=== PATIENT | female | born 1990 ===

== ENCOUNTER 2016-08-17 10:37 | Emergency (ER) | payer OTHER ==
[2016-08-17 10:45] VITALS: O2SAT 100
[2016-08-17 10:46] VITALS: BMI 26.7
[2016-08-17 11:18] LABS: URINE BACTERIA RARE (<OCC); URINE BILIRUBIN NEGATIVE (NEGATIVE); URINE BLOOD NEGATIVE (NEGATIVE); URINE COLOR Colorless (YELLOW); URINE GLUCOSE (UA) NORMAL (Normal); URINE KETONE NEGATIVE (NEGATIVE); URINE LEUKOCYTE ESTERASE NEG Leu/uL (Negative); URINE PROTEIN NEGATIVE (NEGATIVE); URINE UROBILINOGEN NORMAL mg/dL (0.2-1.0)
[2016-08-17] MEDS ORDERED: Iohexol 240 (50 ml) PO STA (11:39)
[2016-08-17] MEDS ORDERED: Sodium Chloride 0.9% 1,000 ML IV STA (11:40)
[2016-08-17] MEDS ORDERED: Iohexol 240 (50 ml) ONE (11:53)
[2016-08-17] MEDS ORDERED: Sodium Chloride 0.9% 1,000 ML ONE (11:53)
[2016-08-17 12:11] LABS: CHLORIDE 103 mmol/L (98-107)
[2016-08-17 12:12] LABS: POTASSIUM 3.4 mmol/L (3.6-5.2); SODIUM 140 mmol/L (132-148)
[2016-08-17 12:14] LABS: ALB/GLOB RATIO 1.3 (1.0-2.1); ALKALINE PHOSPHATASE 52 U/L (38-126); AST/SGOT 21 U/L (14-36); BASO # 0.1 K/uL (0.0-0.2); BASO % 1.2 % (0.0-2.0); BILIRUBIN,TOTAL 0.7 mg/dL (0.2-1.3); CARBON DIOXIDE 27 mmol/L (22-30); EOS # 0.1 K/uL (0.0-0.7); EOS % 1.8 % (0.0-4.0); GFR AFRICAN-AMERICAN > 60; HEMATOCRIT 37.9 % (34.0-47.0); LYMPH # 2.4 K/uL (1.0-4.3); LYMPH % 40.6 % (20.0-40.0); MEAN CORPUSCULAR HEMOGLOBIN 29.3 pg (27.0-31.0); MEAN CORPUSCULAR HGB CONC 33.2 g/dL (33.0-37.0); MEAN PLATELET VOLUME 9.2 fL (7.2-11.7); MONO # 0.3 K/uL (0.0-0.8); MONO % 4.5 % (0.0-10.0); NRBC % 0.1 % (0.0-2.0); TOTAL PROTEIN 7.5 g/dL (6.3-8.3); WHITE BLOOD COUNT 5.9 K/uL (4.8-10.8)
[2016-08-17 12:15] LABS: ALT/SGPT 18 U/L (9-52); BLOOD UREA NITROGEN 13 mg/dL (7-17); CALCIUM 8.8 mg/dl (8.6-10.4); GLUCOSE,RANDOM 71 mg/dL (65-105)
[2016-08-17 12:16] LABS: MEAN CELL VOLUME 88.3 fL (81.0-99.0)
--- NOTE | 2016-08-17 13:39 | C.PDOC ---
History Of Present Illness 26-year-old female, presents to the emergency department with complaints of two- day duration of left-sided abdominal pain that is associated with nausea. Patient denies vomiting, headaches, diarrhea, symptoms, back pain or any other associated symptoms. No other complaints at this time. Time Seen by Provider: 08/17/16 11:20 Chief Complaint (Nursing): Dizziness/Lightheaded History Per: Patient History/Exam Limitations: no limitations Past Medical History Reviewed: Historical Data, Nursing Documentation, Vital Signs Vital Signs: Last Vital Signs Temp 98.0 F 08/17/16 10:44 Pulse 76 08/17/16 10:44 Resp 16 08/17/16 10:44 BP 117/81 08/17/16 10:44 Pulse Ox 100 08/17/16 14:55 Family History: States: Unknown Family Hx - Social History Hx Tobacco Use: No Hx Alcohol Use: No Hx Substance Use: No - Immunization History Hx Tetanus Toxoid Vaccination: Yes Hx Influenza Vaccination: No Hx Pneumococcal Vaccination: No Review Of Systems Except As Marked, All Systems Reviewed And Found Negative. Constitutional: Negative for: Fever, Chills Cardiovascular: Negative for: Chest Pain Respiratory: Negative for: Shortness of Breath Gastrointestinal: Positive for: Abdominal Pain. Negative for: Nausea, Vomiting , Diarrhea Musculoskeletal: Negative for: Back Pain Physical Exam - Physical Exam Appears: Non-toxic, No Acute Distress Skin: Warm, Dry, No Rash Head: Atraumatic Eye(s): bilateral: Normal Inspection Nose: Normal Oral Mucosa: Moist Lips: Normal Appearing Neck: Normal ROM Cardiovascular: Rhythm Regular Respiratory: Normal Breath Sounds, No Accessory Muscle Use Gastrointestinal/Abdominal: Soft, Tenderness (LEFT-SIDED), No Guarding, No Rebound Extremity: Normal ROM ED Course And Treatment - Laboratory Results Result Diagrams: 08/17/16 11:50 08/17/16 11:50 O2 Sat by Pulse Oximetry: 100 - CT Scan/US CT of abdomen/pelvis Other Rad Studies (CT/US): Read By Radiologist, Radiology Report Reviewed CT/US Interpretation: Accession No. : [id number]. Patient Name / ID : KAMLESH STARK / [id number]. Exam Date : 08/17/2016 14:23:43 ( Approved ). Study Comment : Sex / Age : F / 26Y. Creator : Robson Lane MD. Dictator : Robson Lane MD. Data Entry Technician : Grey Goods Tester : Robson Lane MD. Approver2 : Report Date : 08/17/2016 14:56:21. My Comment : . PROCEDURE: CT Abdomen and Pelvis with contrast. HISTORY: LLQ abd pain. COMPARISON: 12/12/2015. TECHNIQUE: Contrast dose: 100 mL Visipaque 320. Radiation dose: Total exam DLP = 659.93 mGy-cm. This CT exam was performed using one or more of the following dose reduction techniques: Automated exposure control, adjustment of the mA and/or kV according to patient size, and/ or use of iterative reconstruction technique. FINDINGS: LOWER THORAX: Probable minimal dependent atelectasis left lower lobe. LIVER: Unremarkable. No gross lesion or ductal dilatation. GALLBLADDER AND BILE DUCTS: Contracted. No calcified gallstones. PANCREAS: Unremarkable. No gross lesion or ductal dilatation. SPLEEN: Unremarkable. ADRENALS: Unremarkable. No mass. KIDNEYS AND URETERS: Unremarkable. No hydronephrosis. No solid mass. VASCULATURE: No aortic aneurysm. Pelvic varices bilaterally, left greater than right. Please correlate with any concern for pelvic congestion syndrome. BOWEL: Unremarkable. No obstruction. No gross mural thickening. APPENDIX: Normal appendix. PERITONEUM: Unremarkable. No free fluid. No free air. LYMPH NODES: Unremarkable. No enlarged lymph nodes. BLADDER: Unremarkable. REPRODUCTIVE : Normal uterus. BONES: No acute fracture. OTHER FINDINGS: None. IMPRESSION: Findings consistent with pelvic congestion syndrome. Please correlate clinically. No evidence of diverticulitis. Otherwise unremarkable examination. Progress Note: Patient feels better. She is stable to be d/c home with OBGYN follow up. Disposition - Disposition Disposition: HOME/ ROUTINE Disposition Time: 16:02 Condition: STABLE Additional Instructions: Follow up with OBGYN within 1-2 days. Return to Ed if feel worse. Prescriptions: Ibuprofen [Motrin Tab] 600 mg PO Q8 #30 tab Instructions: Abdominal Pain (ED) - Clinical Impression Clinical Impression: Abdominal pain - Scribe Statement The provider has reviewed the documentation as recorded by the Scribe Iam Perez All medical record entries made by the Joanneibcindy were at my direction and personally dictated by me. I have reviewed the chart and agree that the record accurately reflects my personal performance of the history, physical exam, medical decision making, and the department course for this patient. I have also personally directed, reviewed, and agree with the discharge instructions and disposition.
[2016-08-17] MEDS ORDERED: Iodixanol 320 MG/ML 100 ML BOTTLE IV ONE (14:11)
--- NOTE | 2016-08-17 14:58 | CT ---
PROCEDURE: CT Abdomen and Pelvis with contrast HISTORY: LLQ abd pain COMPARISON: 12/12/2015 TECHNIQUE: Contrast dose: 100 mL Visipaque 320 Radiation dose: Total exam DLP = 659.93 mGy-cm. This CT exam was performed using one or more of the following dose reduction techniques: Automated exposure control, adjustment of the mA and/or kV according to patient size, and/or use of iterative reconstruction technique. FINDINGS: LOWER THORAX: Probable minimal dependent atelectasis left lower lobe. LIVER: Unremarkable. No gross lesion or ductal dilatation. GALLBLADDER AND BILE DUCTS: Contracted. No calcified gallstones. PANCREAS: Unremarkable. No gross lesion or ductal dilatation. SPLEEN: Unremarkable. ADRENALS: Unremarkable. No mass. KIDNEYS AND URETERS: Unremarkable. No hydronephrosis. No solid mass. VASCULATURE: No aortic aneurysm. Pelvic varices bilaterally, left greater than right. Please correlate with any concern for pelvic congestion syndrome. BOWEL: Unremarkable. No obstruction. No gross mural thickening. APPENDIX: Normal appendix. PERITONEUM: Unremarkable. No free fluid. No free air. LYMPH NODES: Unremarkable. No enlarged lymph nodes. BLADDER: Unremarkable. REPRODUCTIVE: Normal uterus BONES: No acute fracture. OTHER FINDINGS: None. IMPRESSION: Findings consistent with pelvic congestion syndrome. Please correlate clinically. No evidence of diverticulitis. Otherwise unremarkable examination.
[2016-08-17 15:51] VITALS: BP 105/78; PULSE 72; RESP 18; TEMP 98.7
== END 2016-08-17 16:27 | disposition home or self-care (01) ==
LOC: C.ER 10:37
DX: R10.9 Unspecified abdominal pain (principal)
CPT/HCPCS: 74177; 80053; 81001; 83690; 84703; 85025; 96374; 99285; J2405; J7040; Q9966; Q9967

== ENCOUNTER 2016-11-01 04:28 | Emergency (ER) | payer OTHER ==
[2016-11-01 04:28] VITALS: BMI 26.7
[2016-11-01 04:41] VITALS: BP 109/83; RESP 18
--- NOTE | 2016-11-01 05:12 | C.PDOC ---
History Of Present Illness 26 year old female presents to the ED with complaints of fever, cough, earache, sore throat, and blood in sputum for five days. Patient denies nausea, vomiting , diarrhea, or other complaints at this time. Chief Complaint (Nursing): Flu-like Symptoms History Per: Patient History/Exam Limitations: no limitations Onset/Duration Of Symptoms: Days (5) Current Symptoms Are (Timing): Still Present Location Of Pain: Ear(s), Throat Sick Contacts (Context): None Associated Symptoms: Fever, Sore Throat, Cough, Sputum. denies: Chills, Nausea , Vomiting, Diarrhea Recent travel outside of the [place]: No Past Medical History Reviewed: Historical Data, Nursing Documentation, Vital Signs Vital Signs: Last Vital Signs Temp 99.5 F 11/01/16 04:32 Pulse 81 11/01/16 04:32 Resp 18 11/01/16 04:32 BP 109/83 11/01/16 04:32 Pulse Ox 100 11/01/16 05:33 Family History: States: Unknown Family Hx - Social History Hx Tobacco Use: No Hx Alcohol Use: No Hx Substance Use: No - Immunization History Hx Tetanus Toxoid Vaccination: Yes Hx Influenza Vaccination: No Hx Pneumococcal Vaccination: No Review Of Systems Constitutional: Positive for: Fever. Negative for: Chills ENT: Positive for: Ear Pain (earache ), Other (sore throat ) Cardiovascular: Negative for: Chest Pain Respiratory: Positive for: Cough. Negative for: Shortness of Breath Gastrointestinal: Negative for: Nausea, Vomiting, Abdominal Pain, Diarrhea Physical Exam - Physical Exam Appears: Non-toxic, No Acute Distress Skin: Warm, Dry Head: Atraumatic Eye(s): bilateral: Normal Inspection, PERRL, EOMI Ear(s): Left: Other (congested left TM ) Oral Mucosa: Moist Throat: Normal, No Erythema, No Exudate Neck: Supple, Other (no cerival nodes ) Chest: Symmetrical, No Deformity Cardiovascular: Rhythm Regular Respiratory: Rhonchi (occassional rhonci bilateral ) Gastrointestinal/Abdominal: Soft, No Tenderness, No Distention, No Guarding, No Rebound Neurological/Psych: Oriented x3, Normal Speech, Normal Cognition, Normal Cranial Nerves, Normal Motor, Normal Sensation ED Course And Treatment - Laboratory Results Result Diagrams: 11/01/16 05:11 11/01/16 05:11 O2 Sat by Pulse Oximetry: 100 (room air ) - Radiology CXR: Interpreted by Me, Viewed By Me CXR Interpretation: Yes: No Acute Disease. No: Infiltrates Disposition Counseled Patient/Family Regarding: Diagnosis - Disposition Referrals: [facility] at [facility] [Outside] Disposition: HOME/ ROUTINE Disposition Time: 05:34 Condition: STABLE Prescriptions: Acetaminophen [Tylenol 325mg tab] 650 mg PO Q4 #20 tab Amoxicillin [Amoxil 500 mg Cap] 500 mg PO Q8 #20 cap Instructions: Otitis Media (ED), Fever in Adults (GEN) Forms: [employer] (Romansh), Gen Discharge Inst [place] Islander Print Language: LITHUANIAN - POA Present On Arrival: None - Clinical Impression Clinical Impression: Otitis media - Scribe Statement The provider has reviewed the documentation as recorded by the Scribe Sowmya Hanson All medical record entries made by the Scribe were at my direction and personally dictated by me. I have reviewed the chart and agree that the record accurately reflects my personal performance of the history, physical exam, medical decision making, and the department course for this patient. I have also personally directed, reviewed, and agree with the discharge instructions and disposition.
[2016-11-01 05:14] LABS: BASO % 0.8 % (0.0-2.0); EOS # 0.1 K/uL (0.0-0.7); EOS % 1.1 % (0.0-4.0); HEMOGLOBIN 12.9 g/dL (11.0-16.0); LYMPH % 15.8 % (20.0-40.0); MEAN CELL VOLUME 88.7 fL (81.0-99.0); MEAN CORPUSCULAR HEMOGLOBIN 29.6 pg (27.0-31.0); MEAN CORPUSCULAR HGB CONC 33.3 g/dL (33.0-37.0); MONO # 0.4 K/uL (0.0-0.8); MONO % 6.6 % (0.0-10.0); NEUT % 75.7 % (50.0-75.0); RBC 4.35 Mil/uL (3.80-5.20); RED CELL DISTRIBUTION WIDTH 13.9 % (11.5-14.5); WHITE BLOOD COUNT 6.5 K/uL (4.8-10.8)
[2016-11-01 05:22] LABS: ALBUMIN 3.8 g/dL (3.5-5.0)
[2016-11-01 05:25] LABS: GFR AFRICAN-AMERICAN > 60; GFR NON-AFRICAN AMERICAN > 60
[2016-11-01 05:26] LABS: ALB/GLOB RATIO 1.1 (1.0-2.1); ALT/SGPT 36 U/L (9-52); AST/SGOT 34 U/L (14-36); BLOOD UREA NITROGEN 18 mg/dL (7-17); CALCIUM 8.7 mg/dl (8.6-10.4)
[2016-11-01 05:43] VITALS: PULSE 79; TEMP 99.2; O2SAT 99
--- NOTE | 2016-11-01 10:57 | RAD ---
HISTORY: Shortness of breath COMPARISON: No prior. TECHNIQUE: Chest PA and lateral FINDINGS: LUNGS: Mild venous congestion with minimal patchy increased markings at the bases. Mild right hilar prominence. PLEURA: No significant pleural effusion identified. No pneumothorax apparent. CARDIOVASCULAR: Normal. OSSEOUS STRUCTURES: No significant abnormalities. VISUALIZED UPPER ABDOMEN: Normal. OTHER FINDINGS: None. IMPRESSION: Mild venous congestion with minimal patchy increased markings at the bases. Mild right hilar prominence.
== END 2016-11-01 05:42 | disposition home or self-care (01) ==
LOC: C.ER 04:28
DX: H66.92 Otitis media, unspecified, left ear (principal)

== ENCOUNTER 2016-11-20 09:11 | Emergency (ER) | payer OTHER ==
[2016-11-20 09:11] VITALS: BMI 26.7
[2016-11-20 09:26] VITALS: RESP 18; TEMP 98.3
[2016-11-20] MEDS ORDERED: Sodium Chloride 0.9% 1,000 ML IV ONE (09:55)
[2016-11-20] MEDS ORDERED: Sodium Chloride 0.9% 1,000 ML ONE (09:59)
[2016-11-20 10:09] LABS: BASO # 0.1 K/uL (0.0-0.2); EOS # 0.1 K/uL (0.0-0.7); MONO # 0.4 K/uL (0.0-0.8)
[2016-11-20 10:17] LABS: BASO % 1.2 % (0.0-2.0); EOS % 0.8 % (0.0-4.0); HEMATOCRIT 35.7 % (34.0-47.0); LYMPH # 2.3 K/uL (1.0-4.3); LYMPH % 34.8 % (20.0-40.0); MEAN CELL VOLUME 86.9 fL (81.0-99.0); MEAN CORPUSCULAR HEMOGLOBIN 28.7 pg (27.0-31.0); MEAN PLATELET VOLUME 8.4 fL (7.2-11.7); MONO % 6.7 % (0.0-10.0); RED CELL DISTRIBUTION WIDTH 13.5 % (11.5-14.5); WHITE BLOOD COUNT 6.6 K/uL (4.8-10.8)
[2016-11-20 10:24] LABS: RBC URINE < 1 /hpf (0-3); URINE BACTERIA RARE (<OCC); URINE BILIRUBIN NEGATIVE (NEGATIVE); URINE BLOOD NEGATIVE (NEGATIVE); URINE COLOR Yellow (YELLOW); URINE GLUCOSE (UA) NORMAL (Normal); URINE KETONE NEGATIVE (NEGATIVE); URINE LEUKOCYTE ESTERASE NEG Leu/uL (Negative); URINE PROTEIN NEGATIVE (NEGATIVE); URINE UROBILINOGEN NORMAL mg/dL (0.2-1.0); WBC URINE 2 /hpf (0-5)
[2016-11-20 10:41] LABS: CHLORIDE 101 mmol/L (98-107); SODIUM 140 mmol/L (132-148)
[2016-11-20 10:42] LABS: POTASSIUM 3.9 mmol/L (3.6-5.2)
[2016-11-20 10:44] LABS: ALB/GLOB RATIO 1.1 (1.0-2.1); ALKALINE PHOSPHATASE 43 U/L (38-126); AST/SGOT 18 U/L (14-36); BILIRUBIN,TOTAL 0.7 mg/dL (0.2-1.3); CARBON DIOXIDE 26 mmol/L (22-30); GFR AFRICAN-AMERICAN > 60
[2016-11-20 10:45] LABS: ALT/SGPT 28 U/L (9-52); BLOOD UREA NITROGEN 17 mg/dL (7-17); CALCIUM 9.2 mg/dl (8.6-10.4); GLUCOSE,RANDOM 86 mg/dL (65-105)
--- NOTE | 2016-11-20 10:58 | C.PDOC ---
History Of Present Illness 26 y/o female presents to ED for evaluation of intermittent headache for the last month. She states her headache is mostly in the occipital region, and states it occasionally radiates down to her neck. Pt reports taking Motrin with relief of symptoms. Patient also complaints of bright red blood per rectum with bowel movement for the last 6 days. Pt admits to having Hx of hemorrhoids, and c /o current generalized weakness. Patient denies chest pain, shortness of breath , abdominal pain, nausea, vomiting, back pain, dizziness, visual changes, slurred speech, facial droop, sensory changes in extremities, extremity weakness , fever. Time Seen by Provider: 11/20/16 09:42 Chief Complaint (Nursing): GI Problem History Per: Patient History/Exam Limitations: no limitations Onset/Duration Of Symptoms: Days (6) Current Symptoms Are (Timing): Still Present Number Of Bleeding Episodes: Multiple: Amount of Blood Loss: Small Severity: Mild Associated Symptoms: denies: Nausea, Vomiting, Hematemesis, Coffee Ground material, Lightheadedness Additional History Per: Patient Past Medical History Reviewed: Historical Data, Nursing Documentation, Vital Signs Vital Signs: Last Vital Signs Temp 98.3 F 11/20/16 09:24 Pulse 82 11/20/16 11:44 Resp 18 11/20/16 11:44 BP 113/81 11/20/16 11:44 Pulse Ox 96 11/20/16 11:44 Family History: States: No Known Family Hx - Social History Hx Tobacco Use: No Hx Alcohol Use: No Hx Substance Use: No - Immunization History Hx Tetanus Toxoid Vaccination: Yes Hx Influenza Vaccination: No Hx Pneumococcal Vaccination: No Review Of Systems Except As Marked, All Systems Reviewed And Found Negative. Constitutional: Positive for: Weakness. Negative for: Fever, Chills Eyes: Negative for: Vision Change Cardiovascular: Negative for: Chest Pain, Light Headedness Respiratory: Negative for: Shortness of Breath Gastrointestinal: Positive for: Hematochezia (bright red blood per rectum). Negative for: Nausea, Vomiting, Abdominal Pain, Diarrhea, Hematemesis, Rectal Pain Genitourinary: Negative for: Dysuria, Frequency, Hematuria Musculoskeletal: Positive for: Neck Pain. Negative for: Back Pain Neurological: Positive for: Confusion, Headache. Negative for: Weakness, Numbness, Dizziness Physical Exam - Physical Exam Appears: Well, Non-toxic, No Acute Distress Skin: Normal Color, Warm, Dry Head: Atraumatic, Normacephalic Eye(s): bilateral: Normal Inspection (no nystagmus), PERRL, EOMI Oral Mucosa: Moist Neck: Normal, Normal ROM, Supple, Other (no meningismus ) Chest: Symmetrical Cardiovascular: Rhythm Regular, No Murmur Respiratory: Normal Breath Sounds, No Accessory Muscle Use, No Rales, No Rhonchi , No Wheezing Gastrointestinal/Abdominal: Normal Exam, Bowel Sounds, Soft, No Tenderness Rectal: Rectal Tone (normal), Heme Positive (blood tinged stool), Hemorrhoids ( large hemorrhoid at 12'o clock position), No Mass, No Tenderness, No Other (no fissure) Back: Normal Inspection, No CVA Tenderness Extremity: Normal ROM Neurological/Psych: Oriented x3, Normal Speech, Normal Cognition, Normal Cranial Nerves, No Cerebellar Signs, Normal Motor, Normal Sensation Gait: Steady ED Course And Treatment - Laboratory Results Result Diagrams: 11/20/16 10:05 11/20/16 10:05 O2 Sat by Pulse Oximetry: 95 (RA) Pulse Ox Interpretation: Normal Progress Note: Plan: Blood work, UA, Upreg ordered and reviewed. Patient given IV NS bolus, PO tylenol and PO colace. Reevaluation Time: 11:25 Reassessment Condition: Improved (Patient reassessed, is resting comfortably and states she feels better, headache has resolved. Blood work and UA/Upreg unremarkable. Explained to patient her bleeding is likely from hemorrhoid, Rxs given for colace and anusol. Patient also instructed to follow up with neurology within 1 week for headache eval/outpatient MRI. She understands she should return to ED if symptoms worsen.) Disposition Counseled Patient/Family Regarding: Studies Performed, Diagnosis, Need For Followup, Rx Given - Disposition Referrals: Omar Blankenship MD [Staff Provider] - [facility] [Outside] Disposition: HOME/ ROUTINE Disposition Time: 11:25 Condition: STABLE Additional Instructions: SEGUIMIENTO CON NEUROLOGA DENTRO DE 1 SEMANA USE EL MEDICAMENTO SEGN LO DIRIGIDO BEBER MUCHO LQUIDO DEVUELVA A LA MICH DE EMERGENCIA SI LOS SNTOMAS EMPEORARAN Prescriptions: Acetaminophen/Butalbital/Caf [Fioricet] 1 tab PO TID PRN #20 tab PRN Reason: Headache Hydrocortisone 2.5% (Rectal) [Anusol-HC] 30 applic [place] BID #1 tube Instructions: Hemorrhoids (ED), Acute Headache (ED) Forms: [employer] (Belgian) Print Language: MALAY - POA Present On Arrival: None - Clinical Impression Clinical Impression: Hemorrhoids, Headache - Scribe Statement The provider has reviewed the documentation as recorded by the Joanneibcindy Caro All medical record entries made by the Waleska were at my direction and personally dictated by me. I have reviewed the chart and agree that the record accurately reflects my personal performance of the history, physical exam, medical decision making, and the department course for this patient. I have also personally directed, reviewed, and agree with the discharge instructions and disposition.
[2016-11-20 11:45] VITALS: BP 113/81; PULSE 82
[2016-11-25 13:17] VITALS: O2SAT 95
== END 2016-11-20 11:45 | disposition home or self-care (01) ==
LOC: C.ER 09:11
DX: K64.9 Unspecified hemorrhoids (principal); R51 Headache
CPT/HCPCS: 80053; 81001; 84703; 85025; 96360; 99285; G0328; J7040

== ENCOUNTER 2017-07-15 09:08 | Emergency (ER) | payer OTHER ==
[2017-07-15 09:22] VITALS: BMI 27.1
[2017-07-15 09:31] VITALS: TEMP 98.3; O2SAT 100
--- NOTE | 2017-07-15 10:16 | C.PDOC ---
History Of Present Illness 27 y/o female presents to ED with complaints of left sided headache for 5 days. Patient states she took 2 Aspirin and 1 Ibuprofen 600mg 2am this morning with no improvement. Patient states she has had headache before but not as worse as this headache and currently denies fever, nausea, vomiting, photophobia, visual changes or any other complaints at this time. LMP 07/09/17 Chief Complaint (Nursing): Headache History Per: Patient History/Exam Limitations: no limitations Onset/Duration Of Symptoms: Days Current Symptoms Are (Timing): Still Present Quality: "Pain" Past Medical History Reviewed: Historical Data, Nursing Documentation, Vital Signs Vital Signs: Last Vital Signs Temp 98.3 F 07/15/17 09:24 Pulse 71 07/15/17 13:46 Resp 18 07/15/17 13:46 BP 104/69 07/15/17 13:46 Pulse Ox 100 07/15/17 13:46 - Medical History PMH: No Chronic Diseases Surgical History: No Surg Hx Family History: States: No Known Family Hx - Social History Hx Tobacco Use: No Hx Alcohol Use: No Hx Substance Use: No - Immunization History Hx Tetanus Toxoid Vaccination: Yes Hx Influenza Vaccination: No Hx Pneumococcal Vaccination: No Review Of Systems Constitutional: Negative for: Fever, Chills Eyes: Negative for: Vision Change Gastrointestinal: Negative for: Nausea, Vomiting Neurological: Positive for: Headache. Negative for: Weakness, Numbness Physical Exam - Physical Exam Appears: Non-toxic, No Acute Distress Skin: Warm, Dry, No Rash Head: Atraumatic, Normacephalic Eye(s): bilateral: PERRL, EOMI Oral Mucosa: Moist Neck: Normal ROM, Supple Cardiovascular: Rhythm Regular Respiratory: Normal Breath Sounds, No Rales, No Rhonchi, No Wheezing Gastrointestinal/Abdominal: Soft, No Tenderness, No Guarding, No Rebound Extremity: Normal ROM, Capillary Refill (<2 seconds) Neurological/Psych: Oriented x3, Normal Speech, Normal Cognition, Normal Cranial Nerves, Normal Motor, Normal Sensation Gait: Steady ED Course And Treatment - Laboratory Results Result Diagrams: 07/15/17 11:03 07/15/17 11:03 O2 Sat by Pulse Oximetry: 100 (RA) Pulse Ox Interpretation: Normal - CT Scan/US CT head Other Rad Studies (CT/US): Read By Radiologist, Radiology Report Reviewed CT/US Interpretation: Accession No. : [id number]. Patient Name / ID : KAMLESH Almeida / [id number]. Exam Date : 07/15/2017 10:40:08 ( Approved ). Study Comment : Sex / Age : F / 27Y. Creator : Ld Orosco MD. Dictator : Software Support Technician : Metal Room Dental Technician : Ld Orosco MD. Approver2 : Report Date : 07/15/2017 11:03:05. My Comment : . PROCEDURE: CT scan brain dated 07/15/2017. HISTORY: Headache. COMPARISON: None available. TECHNIQUE: Axial computed tomography images were obtained through the head/brain without intravenous contrast. Radiation dose: Total exam DLP = 856.47 mGy-cm. This CT exam was performed using one or more of the following dose reduction techniques: Automated exposure control, adjustment of the mA and/ or kV according to patient size, and/or use of iterative reconstruction technique. FINDINGS: HEMORRHAGE: No intracranial hemorrhage. BRAIN: No mass effect or edema. No atrophy or chronic microvascular ischemic changes. VENTRICLES: Unremarkable. No hydrocephalus. CALVARIUM: Unremarkable. PARANASAL SINUSES: Unremarkable as visualized. No significant inflammatory changes. MASTOID AIR CELLS: Unremarkable as visualized. No inflammatory changes. OTHER FINDINGS: None. IMPRESSION: Normal CT of the Head. Progress Note: Blood work, UA, Head CT ordered. IVF, Reglan and Toradol administered. On re-evaluation patient feels better, no longer c/o headache. On re-exam: supple neck, no neuro deficit. Patient is stable to be d/c home with PMD/Clinic follow up. Disposition - Disposition Referrals: [facility] at [facility] [Outside] Disposition: HOME/ ROUTINE Disposition Time: 13:38 Condition: IMPROVED Additional Instructions: Follow up in Clinic within 1-2 days. Return to ED if feel worse. Prescriptions: Acetaminophen/Butalbital/Caf [Fioricet] 1 tab PO TID PRN #20 tab PRN Reason: Headache Instructions: Headache, Adult Forms: [employer] (Kyrgyz) Print Language: CONGOLESE - Clinical Impression Clinical Impression: Headache - PA / LAND ACQUISITION SPECIALIST / Resident Statement MD/DO has reviewed & agrees with the documentation as recorded. - Scribe Statement The provider has reviewed the documentation as recorded by the Joanneibcindy Kilpatrick All medical record entries made by the Scribe were at my direction and personally dictated by me. I have reviewed the chart and agree that the record accurately reflects my personal performance of the history, physical exam, medical decision making, and the department course for this patient. I have also personally directed, reviewed, and agree with the discharge instructions and disposition.
[2017-07-15] MEDS ORDERED: Lactated Ringer's 1,000 ML IV STA (10:17)
[2017-07-15] MEDS ORDERED: Lactated Ringer's 1,000 ML ONE (10:50)
--- NOTE | 2017-07-15 11:05 | CT ---
PROCEDURE: CT scan brain dated 07/15/2017. HISTORY: Headache COMPARISON: None available. TECHNIQUE: Axial computed tomography images were obtained through the head/brain without intravenous contrast. Radiation dose: Total exam DLP = 856.47 mGy-cm. This CT exam was performed using one or more of the following dose reduction techniques: Automated exposure control, adjustment of the mA and/or kV according to patient size, and/or use of iterative reconstruction technique. FINDINGS: HEMORRHAGE: No intracranial hemorrhage. BRAIN: No mass effect or edema. No atrophy or chronic microvascular ischemic changes. VENTRICLES: Unremarkable. No hydrocephalus. CALVARIUM: Unremarkable. PARANASAL SINUSES: Unremarkable as visualized. No significant inflammatory changes. MASTOID AIR CELLS: Unremarkable as visualized. No inflammatory changes. OTHER FINDINGS: None. IMPRESSION: Normal CT of the Head.
[2017-07-15 11:11] LABS: BASO # 0.1 K/uL (0.0-0.2); BASO % 1.4 % (0.0-2.0); EOS # 0.1 K/uL (0.0-0.7); HEMOGLOBIN 13.1 g/dL (11.0-16.0); LYMPH % 39.9 % (20.0-40.0); MEAN CELL VOLUME 86.8 fL (81.0-99.0); MEAN CORPUSCULAR HEMOGLOBIN 29.3 pg (27.0-31.0); MEAN CORPUSCULAR HGB CONC 33.7 g/dL (33.0-37.0); MEAN PLATELET VOLUME 9.4 fL (7.2-11.7); MONO # 0.3 K/uL (0.0-0.8); MONO % 5.1 % (0.0-10.0); NEUT # 2.5 K/uL (1.8-7.0); NEUT % 51.6 % (50.0-75.0); NRBC % 0.1 % (0.0-2.0); RBC 4.47 Mil/uL (3.80-5.20); RED CELL DISTRIBUTION WIDTH 13.8 % (11.5-14.5); WHITE BLOOD COUNT 4.9 K/uL (4.8-10.8)
[2017-07-15 11:34] LABS: ALB/GLOB RATIO 1.2 (1.0-2.1); ALBUMIN 4.3 g/dL (3.5-5.0); ALT/SGPT 19 U/L (9-52); AST/SGOT 25 U/L (14-36); BLOOD UREA NITROGEN 13 mg/dL (7-17); CALCIUM 9.3 mg/dl (8.6-10.4); GFR AFRICAN-AMERICAN > 60; GFR NON-AFRICAN AMERICAN > 60
[2017-07-15 12:30] LABS: BARBITURATES, UR NEGATIVE (NEGATIVE); BENZODIAZEPINES, UR NEGATIVE (NEGATIVE); OPIATES, UR NEGATIVE (NEGATIVE); PHENCYCLIDINE, UR NEGATIVE (NEGATIVE); URINE BILIRUBIN NEGATIVE (NEGATIVE); URINE CLARITY Clear (Clear); URINE COLOR YELLOW (YELLOW); URINE GLUCOSE (UA) NEGATIVE (Normal)
[2017-07-15 12:31] LABS: PH,URINE 6.5 (5.0-8.0); SQUAMOUS EPITHIAL 8 /hpf (0-5); URINE BACTERIA RARE (<OCC); URINE BLOOD NEGATIVE (NEGATIVE); URINE LEUKOCYTE ESTERASE Negative Leu/uL (Negative); URINE PROTEIN NEGATIVE (NEGATIVE); URINE UROBILINOGEN 0.2 mg/dL (0.2-1.0)
[2017-07-15 13:47] VITALS: BP 104/69; PULSE 71; RESP 18
== END 2017-07-15 13:46 | disposition home or self-care (01) ==
LOC: C.ER 09:08
DX: R51 Headache (principal)
CPT/HCPCS: 70450; 80053; 80324; 80345; 80346; 80349; 80353; 80358; 80361; 81001; 83992; 85025; 96361; 96374; 99284; J1885; J7120